=== PATIENT | female | born 1965 | race Two or more races ===

== ENCOUNTER 2019-05-12 13:38 | Outpatient (CLI) | payer OTHER | END 2019-05-12 13:46 | disposition home or self-care (01) | LOC: NUCLEAR 13:38 | DX: M81.0 Age-related osteoporosis without current pathological fracture (principal) ==

== ENCOUNTER 2022-02-01 13:38 | Outpatient (CLI) | payer OTHER | END 2022-02-01 13:39 | disposition home or self-care (01) | LOC: NUCLEAR 13:38 | DX: M81.0 Age-related osteoporosis without current pathological fracture (principal) ==

== ENCOUNTER 2024-06-03 13:57 | Outpatient (CLI) | payer OTHER | END 2024-06-03 14:13 | disposition home or self-care (01) | LOC: NUCLEAR 13:57 | PROVIDERS: ATTEND Internal Medicine | DX: M81.0 Age-related osteoporosis without current pathological fracture (principal) ==

== ENCOUNTER 2025-05-07 09:40 | Outpatient (CLI) | payer OTHER | END 2025-05-07 09:48 | disposition home or self-care (01) | LOC: TOM 09:40 | PROVIDERS: ATTEND Internal Medicine Gastroenterology | DX: D12.8 Benign neoplasm of rectum (principal); R91.1 Solitary pulmonary nodule ==